=== PATIENT | female | born 1985 | race Caucasian/White ===

== ENCOUNTER 2020-12-13 15:08 | Emergency (ER) | payer MEDICAID ==
[~2020-12-13] VITALS: Ht 162.6 cm; Wt 59.0 kg
[2020-12-13 15:08] VITALS: BP_SYST 127
[2020-12-13] MEDS ORDERED: LIDOCAINE 1%, 20 ML MDV 20 ML ONE (15:26)
[2020-12-13] MEDS ORDERED: CEPH250C PO (15:39)
[2020-12-13] MEDS ORDERED: SULF1TAB48 PO (15:39)
[2020-12-13 15:50] VITALS: BP_SYST 131
== END 2020-12-13 15:50 | disposition home or self-care (01) ==
LOC: SED 15:08
DX: L03.011 Cellulitis of right finger (principal); Z88.8 Allergy status to other drugs, medicaments and biological substances; Z79.899 Other long term (current) drug therapy
CPT/HCPCS: 26010; 99283; J2001